=== PATIENT | female | born 1965 | race Caucasian/White ===

== ENCOUNTER 2017-01-16 12:06 | Emergency (ER) | payer MEDICAID, OTHER | END 2017-01-16 12:50 | disposition left against medical advice (07) | LOC: JP.ED 12:06 | DX: Z53.21 Procedure and treatment not carried out due to patient leaving prior to being seen by health care provider (principal) ==

== ENCOUNTER 2017-01-24 08:29 | Day surgery (SDC) | payer MEDICAID, OTHER ==
[2017-01-24] MEDS ORDERED: Lactated Ringers 1,000 ML IV SCH (09:30)
[2017-01-24] MEDS ORDERED: Propofol 200 MG/20 ML SDV ONE (10:01)
[2017-01-24] MEDS ORDERED: Midazolam 1 MG/ML 2 ML SDV ONE (10:01)
[2017-01-24] MEDS ORDERED: fentaNYL 100 MCG/2 ML SDV ONE (10:01)
[2017-01-24 12:54] VITALS: BP 117/85
--- NOTE | 2017-01-25 10:37 | OR ---
DATE OF PROCEDURE: 01/24/2017 PREOPERATIVE DIAGNOSIS: Colon cancer screening. POSTOPERATIVE DIAGNOSIS: Unremarkable colonoscopy. PROCEDURE: Colonoscopy to the cecum. SURGEON: Mervin Bruno MD. ANESTHESIA: IV anesthesia with monitored anesthesia care. INDICATION: This 51-year-old white female is referred for a colonoscopy for colon cancer screening. She has never had a colonoscopic exam. I counseled her for the procedure including risks and alternatives, and she gave her informed consent to proceed. DESCRIPTION OF PROCEDURE: The patient was placed in the left lateral decubitus position. IV anesthesia was administered by the Anesthesia Service. Time-out was held. A rectal exam was performed, which was unremarkable. The flexible video Olympus colonoscope was introduced through her anus, up her rectum, and out her colon all the way to the cecum. Once the cecum was reached, the scope was slowly withdrawn examining the mucosa throughout. No mucosal abnormalities were noted. The scope was retroflexed in the rectum with the distal rectum appearing unremarkable. The scope was straightened and removed. She tolerated the procedure well. Mervin Bruno MD /[id number] MTDD
== END 2017-01-24 13:00 | disposition home or self-care (01) ==
LOC: JP.SDS 08:29
PROVIDERS: ATTEND Surgery
DX: Z12.11 Encounter for screening for malignant neoplasm of colon (principal); K21.9 Gastro-esophageal reflux disease without esophagitis; Z88.1 Allergy status to other antibiotic agents; Z88.2 Allergy status to sulfonamides; Z88.8 Allergy status to other drugs, medicaments and biological substances
CPT/HCPCS: 45378; J2250; J2704; J3010; J7120

== ENCOUNTER 2018-08-19 11:41 | Emergency (ER) | payer OTHER ==
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
[2018-08-19] MEDS ORDERED: Ondansetron 4 MG/2 ML SDV IVPUSH ONE (12:18)
[2018-08-19] MEDS ORDERED: Sodium Chloride 0.9% 1,000 ML IV ONE ×2 (12:18→13:41)
[2018-08-19] MEDS ORDERED: diphenhydrAMINE 50 MG/ML SDV IVPUSH ONE (13:12)
[2018-08-19] MEDS ORDERED: Ketorolac 30 MG/ML SDV IVPUSH ONE (13:12)
[2018-08-19] MEDS ORDERED: Meclizine 25 MG Tab PO ONE (13:40)
[2018-08-19] MEDS ORDERED: HYDROmorphone 0.5 MG/0.5 ML Syringe IVPUSH ONE ×2 (14:00→15:21)
[2018-08-19] MEDS ORDERED: Prochlorperazine 10 MG in Sodium Chloride 0.9% 50 ML IV ONE (14:29)
[2018-08-19 15:14] VITALS: BP 120/74
[2018-08-19] MEDS ORDERED: LORazepam 2 MG/ML SDV IVPUSH ONE (15:22)
== END 2018-08-19 15:35 | disposition home or self-care (01) ==
LOC: JP.ED 11:41
DX: G43.519 Persistent migraine aura without cerebral infarction, intractable, without status migrainosus (principal); Z79.899 Other long term (current) drug therapy; Z88.5 Allergy status to narcotic agent; Z88.1 Allergy status to other antibiotic agents; Z88.2 Allergy status to sulfonamides
CPT/HCPCS: 36415; 70210; 70450; 80053; 81001; 85025; 96361; 96365; 96375; 99285; A9270; J0780; J1170; J1200; J1885; J2405; J7030; J7050

== ENCOUNTER 2018-10-20 22:36 | Emergency (ER) | payer OTHER ==
[2018-10-20 23:06] VITALS: BP 155/99
--- NOTE | 2018-10-20 23:52 | CRLCR ---
INDICATION: Twisted, distal and lateral foot pain TECHNIQUE: Foot radiograph 3 views left COMPARISON: 02/21/2010 FINDINGS: Bone: No acute fractures or aggressive bone lesions are identified. Joint: Mild osteoarthritis of the 1st metatarsophalangeal joint is present without change. No significant ankle effusion is seen. Soft tissue: Unremarkable. No radiopaque foreign bodies are seen. Miscellaneous: Mild bunion deformity is noted without interval change. Three suture anchors are seen in the lateral malleolus. IMPRESSION: 1. No acute osseous injuries or abnormalities are noted. Dictated by Robby Kinsye MD @ 10/20/2018 11:50:35 PM Dictated by: Robby Kinsey MD @ 10/20/2018 23:50:40 (Electronically Signed)
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
== END 2018-10-21 00:26 | disposition home or self-care (01) ==
LOC: JP.ED 22:36
DX: S96.912A Strain of unspecified muscle and tendon at ankle and foot level, left foot, initial encounter (principal); K21.9 Gastro-esophageal reflux disease without esophagitis; Z88.1 Allergy status to other antibiotic agents; Z88.5 Allergy status to narcotic agent; Z79.899 Other long term (current) drug therapy; X50.1XXA Overexertion from prolonged static or awkward postures, initial encounter
CPT/HCPCS: 73630-LT; 99283-25

== ENCOUNTER 2020-08-02 21:00 | Emergency (ER) | payer BC ==
[2020-08-02 21:21] VITALS: BP 132/96; PULSE 86
[2020-08-02] MEDS ORDERED: Ketorolac 30 MG/ML SDV IVPUSH ONE (21:46)
[2020-08-02] MEDS ORDERED: Ondansetron 4 MG/2 ML SDV IVPUSH ONE (21:46)
[2020-08-02] MEDS ORDERED: Sodium Chloride 0.9% 10 ML Syringe FLUSH PRN (21:46)
[2020-08-02] MEDS ORDERED: Sodium Chloride 0.9% 1,000 ML IV ONE (22:20)
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
== END 2020-08-02 22:53 | disposition home or self-care (01) ==
LOC: JP.ED 21:00
DX: N93.8 Other specified abnormal uterine and vaginal bleeding (principal); Z88.1 Allergy status to other antibiotic agents; Z88.5 Allergy status to narcotic agent; Z88.2 Allergy status to sulfonamides; Z79.899 Other long term (current) drug therapy
CPT/HCPCS: 36415; 85025; 96374; 96375; 99284; A9270; J1885; J2405

== ENCOUNTER 2022-10-11 18:08 | Emergency (ER) | payer OTHER ==
[2022-10-11 19:17] VITALS: BP 133/76; PULSE 78
[2022-10-11] MEDS ORDERED: Methocarbamol 500 MG Tab PO ONE (19:22)
[2022-10-11] MEDS ORDERED: Ketorolac 30 MG/ML SDV IM ONE (19:22)
== END 2022-10-11 21:57 | disposition home or self-care (01) ==
LOC: JP.ED 18:08
DX: S63.92XA Sprain of unspecified part of left wrist and hand, initial encounter (principal); S63.502A Unspecified sprain of left wrist, initial encounter; S40.012A Contusion of left shoulder, initial encounter; M75.52 Bursitis of left shoulder; Z88.1 Allergy status to other antibiotic agents; Z88.5 Allergy status to narcotic agent; Z88.6 Allergy status to analgesic agent; Z88.2 Allergy status to sulfonamides; Z79.899 Other long term (current) drug therapy; W00.9XXA Unspecified fall due to ice and snow, initial encounter
CPT/HCPCS: 71101; 73030; 73110; 73130; 96372; 99283; A9270; J1885